=== PATIENT | female | born 1995 | race Caucasian/White ===

== ENCOUNTER → 2019-08-18 | Outpatient (CLI) | payer BC, SELFPAY ==
[2019-08-18 15:35] VITALS: BMI 24.9
[2019-08-18 17:45] LABS: Amphetamine Urine VISTA NEGATIVE (<1000 ng/mL); Barbiturate Urine VISTA NEGATIVE (< 200 ng/mL); Benzodiazepine Urine VISTA NEGATIVE (< 200 ng/mL); Cocaine Urine VISTA NEGATIVE (< 300 ng/mL); Ecstacy Urine VISTA NEGATIVE (< 500 ng/mL); Methadone Urine VISTA NEGATIVE (< 300 ng/mL); PCP Urine VISTA NEGATIVE (< 25 ng/mL); THC Urine VISTA NEGATIVE (< 50 ng/mL); Vista UDS pH Range 6
[2019-08-18 19:56] LABS: Chlamydia Trachomatis by PCR Negative (Negative); Neisserai gonorrhoeae by PCR Negative (Negative); Probe Check PASS; Sample Adequacy Control PASS; Specimen Processing Control PASS
[2019-08-24 09:40] LABS: HPV Reflexed? NOT INDICATED
== END | disposition home or self-care (01) ==
LOC: LABSPEC 16:54
PROVIDERS: PCP Nurse Practitioner Family; Referring Provider Obstetrics & Gynecology; Visit Provider Obstetrics & Gynecology
DX: Z34.90 Encounter for supervision of normal pregnancy, unspecified, unspecified trimester (principal)
CPT/HCPCS: 80307; 87086; 87088; 87491; 87591; 88175; G0145

== ENCOUNTER → 2019-08-19 11:20 | Outpatient (CLI) | payer BC, SELFPAY ==
[2019-08-18 15:35] VITALS: BMI 24.9
[2019-08-19 11:34] LABS: Absolute Lymphocyte Count 2.07 X10^3/uL (0.83-4.51); Absolute Neutrophil Count 3.7 X10^3/uL (2.0-7.7); Basophil# 0.05 X10^3/uL; Basophil% 0.7 % (0-1); Eosinophil# 0.06 X10^3/uL; Eosinophils% 0.9 % (0-5); Hemoglobin 12.7 g/dL (12.0-15.0); Lymphocyte # 2.07 X10^3/ul (4.0); Mean Corp Hgb Conc 31.8 g/dL (32-36); Mean Corpuscular Volume 94.3 fL (81-99); Mean Platelet Vol. 12.5 fl (6.2-12.0); Monocyte# 0.79 X10^3/uL; Monocyte% 11.8 % (0-10); NRBC Flagged by Analyzer 0 % (0-5); Neutrophil # 3.68 X10^3/uL (2.7-7.7); Neutrophil % 55.3 % (47-70); Platelet Count 164 K/mm3 (150-450); RBC Distribution Width CV 12.8 % (11.6-14.6); RBC Distribution Width SD 43.8 fl (35.1-43.9); Red Blood Count 4.24 M/mm3 (4.2-5.4); White Blood Count 6.7 K/mm3 (4.4-11.0)
[2019-08-19 13:16] LABS: HIV - WCH Non-Reactive (Nonreactive); Hepatitis B Surface Antigen Non-Reactive (Nonreactive); Hepatitis C Antibody Non-Reactive (Nonreactive); Rubella IgG 30.2 IU/mL
[2019-08-25 04:31] LABS: Rapid Plasmin Reagin (RPR) NONREACTIVE (NONREACTIVE)
== END ==
PROVIDERS: PCP Nurse Practitioner Family; Referring Provider Obstetrics & Gynecology; Visit Provider Obstetrics & Gynecology
DX: Z34.90 Encounter for supervision of normal pregnancy, unspecified, unspecified trimester (principal)
CPT/HCPCS: 36415; 85025; 86592; 86703; 86762; 86803; 86850; 86900; 86901; 87340

== ENCOUNTER → 2019-08-25 08:05 | Outpatient (CLI) | payer BC, SELFPAY ==
[2019-08-18 15:35] VITALS: BMI 24.9
--- NOTE | 2019-08-25 08:06 | US_ITS ---
STUDY: FIRST TRIMESTER OBSTETRICAL ULTRASOUND REASON FOR EXAM: Female, 24 years old dating LMP: June 09, 2019. TECHNIQUE: Transvaginal TECHNICAL QUALITY: Adequate. PRIOR ULTRASOUND: None. FINDINGS: There is visualization of a single gestational sac in a normal intrauterine position. The mean sac diameter (MSD) measures 2.6 cm, indicating an estimated gestational age (EGA) of 7 weeks, 4 days. The gestational sac shape is within normal limits. There is a visualized yolk sac. The yolk sac measures 2 mm. The placenta is non-visualized. There is visualization of a live embryo. The crown-rump length (CRL) measures 1.3 cm, indicating an estimated gestational age (EGA) of 7 weeks, 4 days. There is demonstrated cardiac activity with a heart rate of 152 bpm. The estimated gestation age (EGA) by LMP is 11 weeks, 0 days. The estimated date of delivery (BELTRAN) by LMP is March 15, 2020. The estimated gestation age (EGA) by US is 7 weeks, 4 days. The estimated date of delivery (BELTRAN) by US is April 08, 2020. The uterus measures 9.9 cm x 8.1 cm x 5.3 cm. There is no demonstrated uterine fibroid. The cervix is closed. The right ovary measures 3.7 cm x 2.7 cm x 2.6 cm. There is no right ovarian cyst. There is no visualized right adnexal mass or complex lesion. The left ovary measures 3 cm x 2.1 cm x 1.6 cm. There is no left ovarian cyst. There is no visualized left adnexal mass or complex lesion. There is no fluid in the cul de sac. US/Transvaginal w/Preg US IMPRESSION: Single live intrauterine gestation with a mean gestational age of 7 weeks and 4 days Electronically Signed: Leoncio Medeiros, at 9:37 EDT , Service support ,
== END ==
PROVIDERS: PCP Nurse Practitioner Family; Referring Provider Obstetrics & Gynecology; Visit Provider Obstetrics & Gynecology
DX: O26.841 Uterine size-date discrepancy, first trimester (principal); Z3A.01 Less than 8 weeks gestation of pregnancy
CPT/HCPCS: 76817

== ENCOUNTER → 2020-01-05 12:27 | Outpatient (CLI) | payer BC, SELFPAY ==
[2019-12-06 13:09] VITALS: BMI 27.1
[2020-01-05 12:57] LABS: Absolute Lymphocyte Count 1.78 X10^3/uL (0.83-4.51); Absolute Neutrophil Count 7.9 X10^3/uL (2.0-7.7); Basophil# 0.06 X10^3/uL; Basophil% 0.6 % (0-1); Eosinophils% 0.9 % (0-5); Hematocrit 35.3 % (37-47); Hemoglobin 11.5 g/dL (12.0-15.0); Lymphocyte # 1.78 X10^3/ul (4.0); Lymphocyte % 16.3 % (19-41); Mean Corp Hgb Conc 32.6 g/dL (32-36); Mean Corpuscular Hgb 30.7 pg (27.0-32.0); Mean Corpuscular Volume 94.4 fL (81-99); Mean Platelet Vol. 12.3 fl (6.2-12.0); Monocyte% 8.3 % (0-10); NRBC Flagged by Analyzer 0 % (0-5); Neutrophil # 7.89 X10^3/uL (2.7-7.7); Neutrophil % 72.3 % (47-70); Platelet Count 178 K/mm3 (150-450); RBC Distribution Width CV 12.2 % (11.6-14.6); RBC Distribution Width SD 42.5 fl (35.1-43.9); Red Blood Count 3.74 M/mm3 (4.2-5.4); White Blood Count 10.9 K/mm3 (4.4-11.0)
[2020-01-05 13:35] LABS: Glucose Challenge Gest 1H 50g 123 mg/dL (70-140)
== END ==
PROVIDERS: PCP Nurse Practitioner Family; Referring Provider Obstetrics & Gynecology; Visit Provider Obstetrics & Gynecology
DX: Z13.1 Encounter for screening for diabetes mellitus (principal); Z34.90 Encounter for supervision of normal pregnancy, unspecified, unspecified trimester
CPT/HCPCS: 36415; 82950; 85025

== ENCOUNTER → 2020-03-15 13:11 | Outpatient (CLI) | payer BC, SELFPAY ==
[2020-03-15 09:15] VITALS: BMI 29.7
== END ==
PROVIDERS: PCP Nurse Practitioner Family; Visit Provider Obstetrics & Gynecology
DX: Z34.90 Encounter for supervision of normal pregnancy, unspecified, unspecified trimester (principal)
CPT/HCPCS: 87081

== ENCOUNTER → 2020-04-06 14:15 | Outpatient (CLI) | payer BC, SELFPAY ==
[2020-03-01 08:59] VITALS: BMI 29.6
[2020-04-05 11:07] VITALS: BMI 29.9
--- NOTE | 2020-04-06 14:17 | US_ITS ---
STUDY: SECOND AND THIRD TRIMESTER OBSTETRICAL ULTRASOUND REASON FOR EXAM: Female, 25 years old growth LMP: TECHNIQUE: TECHNICAL QUALITY: Adequate. PRIOR ULTRASOUND: None. FINDINGS: There is a single intrauterine fetus. The fetus is in a cephalic presentation. There is demonstrated cardiac activity with a heart rate of 126 bpm. There is a normal amniotic fluid volume. The largest amniotic fluid pocket measures 2.75 cm. The amniotic fluid index (IBETH) is 7.9 cm. The placenta is anterior. There are Grade 3 placental changes. There is nonvisualization of the cervix secondary to posterior shadowing from the calvarium. BIOMETRY: BPD: 9.42 cm: 38 weeks, 2 days HC: 34.18 cm: 39 weeks, 2 days AC: 33.67 cm: 37 weeks, 4 days FL: 7.71 cm: 39 weeks, 2 days CI: 81.07 FL/BPD: 82% FL/HC: 22.56 % FL/AC: 23% HC/AC: age by current US: 38 weeks, 4 days. BELTRAN by current US: 04/16/2020. Estimated weight: 3469 grams, +/- 520 grams, 41.82 %. Age by LMP: 39 weeks, 5 days. BELTRAN by LMP: 04/08/2020. US/OB Limited With Biometrics IMPRESSION: Single intrauterine with an estimated gestational age by ultrasound of 38 weeks and 4 days and an BELTRAN of 04/16/2020. Electronically Signed: Ju Leyva MD at 21:31 EST Tel , Service support ,
== END ==
LOC: MTDU 14:17 → OPUS 14:21
PROVIDERS: PCP Nurse Practitioner Family; Referring Provider Nurse Practitioner Women's Health; Visit Provider Nurse Practitioner Women's Health
DX: O26.843 Uterine size-date discrepancy, third trimester (principal); Z3A.38 38 weeks gestation of pregnancy
CPT/HCPCS: 76816; 87635; C9803; U0005; U0003

== ENCOUNTER 2020-04-10 16:25 | Outpatient (CLI) | payer BC, SELFPAY ==
[2020-04-05 11:07] VITALS: BMI 29.9
[2020-04-10 16:47] VITALS: BMI 30.2
[2020-04-10 17:12] VITALS: O2SAT 87
[2020-04-10 17:13] VITALS: BP 107/60; PULSE 91; TEMP 37; O2SAT 98
[2020-04-10 17:32] LABS: ROM Internal Control Test YES-OK TO RESULT pt. (Internal QC)
[2020-04-10 17:33] LABS: ROM Patient Test Negative (Negative)
--- NOTE | 2020-04-10 17:44 | OB.TRI.PN ---
Progress Notes Date of Service: 04/10/20 Progress Note: Patient presents for triage evaluation secondary to false labor possible rupture of membranes FHT: 130 Moderate variability reactive no decelerations category I tracing [place]: No regular contractions Assessment and plan: False labor intact amniotic membranes reactive NST, reassuring maternal and status patient discharged to home to follow-up as scheduled in office reviewed labor precautions. See problem list details for additional plan information. Laboratory Studies: Laboratory Tests 04/10/20 Range/Units 16:42 Vag Amniotic Fld Detect Negative (Negative) Multi Select Codes - Urinary/Genital Urinary/Genital CPT Codes: 14743-09 non-stress test Interp
== END 2020-04-10 18:15 | disposition home or self-care (01) ==
LOC: OBT 16:42 → WP 16:43
PROVIDERS: PCP Nurse Practitioner Family; Referring Provider Obstetrics & Gynecology; Visit Provider Obstetrics & Gynecology
DX: O47.9 False labor, unspecified (principal); Z3A.00 Weeks of gestation of pregnancy not specified
CPT/HCPCS: 59025; 59050; 84112; 99218; G0378

== ENCOUNTER 2020-04-11 00:25 | Inpatient (IN) | payer BC, SELFPAY ==
[2020-04-10 16:47] VITALS: BMI 30.2
[2020-04-11] VITALS (47 sets, daily range): BP systolic 87–137; BP diastolic 51–75; PULSE 65–115; RESP 16; TEMP 36.2–37.3; O2SAT 95–100; BMI 30.2
[2020-04-11] MEDS: Lactated Ringers 1,000 ML 50 ML IV (00:45)
[2020-04-11 01:04] LABS: Absolute Lymphocyte Count 2.02 X10^3/uL (0.83-4.51); Absolute Neutrophil Count 7.6 X10^3/uL (2.0-7.7); Basophil# 0.06 X10^3/uL; Basophil% 0.6 % (0-1); Eosinophil# 0.04 X10^3/uL; Eosinophils% 0.4 % (0-5); Hematocrit 34.8 % (37-47); Hemoglobin 11.2 g/dL (12.0-15.0); Lymphocyte # 2.02 X10^3/ul (4.0); Lymphocyte % 18.6 % (19-41); Mean Corp Hgb Conc 32.2 g/dL (32-36); Mean Corpuscular Hgb 28.8 pg (27.0-32.0); Mean Corpuscular Volume 89.5 fL (81-99); Mean Platelet Vol. 13.1 fl (6.2-12.0); Monocyte# 1.01 X10^3/uL; Monocyte% 9.3 % (0-10); NRBC Flagged by Analyzer 0 % (0-5); Neutrophil # 7.64 X10^3/uL (2.7-7.7); Neutrophil % 70.5 % (47-70); Platelet Count 172 K/mm3 (150-450); RBC Distribution Width SD 42.4 fl (35.1-43.9); Red Blood Count 3.89 M/mm3 (4.2-5.4); White Blood Count 10.8 K/mm3 (4.4-11.0)
[2020-04-11] MEDS: Acetaminophen 500 MG Tablet PO (01:38)
[2020-04-11] MEDS: Lactated Ringers 500 ML 999 ML IV (02:50)
[2020-04-11] MEDS: fentaNYL-bupivacaine (epidural) 100 ML BAG EPIDURAL ×3 (04:00→14:04)
--- NOTE | 2020-04-11 05:07 | HP.PCM_ITS ---
- Problem List (1) SROM (spontaneous rupture of membranes) Status: Acute (2) 35 weeks gestation of Status: Acute Comment: NEGATIVE COVID TEST (3) Influenza vaccine administered Status: Acute Comment: 11/10/2019sc (4) Status: Acute Qualifiers: Comment: declined genetic, carrier and NTD, anatomy US nl (5) Supervision of normal Status: Acute Qualifiers: Comment: PRR BELTRAN 04/08/20 girl Lili Spouse: Asael (6) Uterine size-date discrepancy in third trimester Status: Acute Comment: growth US NL History and Physical Date of Admission: 04/11/20 Intake Vital Signs 04/05/20 Height 5 ft 4 in 04/05/20 Weight: 174 lb 4 oz 04/05/20 BMI 29.9 04/05/20 BP 122/76 H Intake Visit Reasons: 39 WK OB [employer] Required: No Is patient in pain?: No Allergies cefprozil [From Cefzil] Allergy (Unknown, Verified 04/05/20 11:08) Unknown sulfamethoxazole [From Septra] Allergy (Unknown, Verified 04/05/20 11:08) Unknown trimethoprim [From Septra] Allergy (Unknown, Verified 04/05/20 11:08) Unknown Medications multivitamin no.47-iron fum 27 mg-folate no.1 1 mg-dha 300 mg capsule cap PO 08/18/19 [History Confirmed 04/05/20] Last Menstral Period: 06/09/19 Zika: Zika virus screening: Negative : No PFSH PFSH Medical History No significant medical problems (Acute) Surgical History No significant past surgical history (Acute) Family History Grandmother Breast cancer Uncle Colon cancer Social History (Updated 04/05/20 @ 11:[address] Chio Carrizales MD) adopted: No household members: spouse housing: house current occupational status: employed current occupation: MA pets and animals: No history of recent travel: No sexually active: Yes Smoking Status: Never smoker second hand exposure: No alcohol intake: current alcohol intake frequency: holidays/special occasions only substance use type: does not use seatbelt use: always do you feel safe at home: Yes additional social history: Asael- [place]- [place] Pregancy History 1 Elective abortions Hx Para Spontaneous abortions Hx # Term Pregnancies Ectopic pregnancies Hx # Pregnancies Multiple births # of living children HPI 39 WK OB: Details: LETICIA BORDEN is a 25 year old at 40 weeks 3 days presents in active labor with spontaneous rupture membranes meconium fluid. She has been having irregular contractions since yesterday afternoon and is 2 cm upon admission. She has had an uncomplicated . OB Visit BELTRAN Calculator Estimated Delivery Date Method Current WG Current Estimate 04/08/20 Ultrasound #1 39w 4d Other Estimates 03/15/20 LMP (Certain) 43w 0d Expected Delivery Route/Plan by 41 weeks Labor Preferences- CB/BF classes: done january labor support person: Noel labor intervention preferences: minimal intervention pain management options preferred: minimal interventionbut to open cut cord/dad catch: no : yes PP control planned: [] discussed possible routes of delivery and associated risks: discussed possible delivery modalities and possible indications for each including R/B/A of , VAVD, and CS. questions answered. special requests: [] Specific Issue/Plans flu vaccine: 11/09 tdap vaccine: given 02/01 rhogam: na LARC form signed: yes movement and labor precautions reviewed. Problem list reviewed and updated with the most current plan of care details and appropriate orders placed. Relevant counseling for the gestational age provided. Continue routine care and follow up unless otherwise noted in visit notes/problem list details Initial Weight: 145 lb Date EGA Weight BP Urine Prot Glucose FHR FuHt Pres Dilation Effaced St Visit Note 09/15/19 10w 4d 146 lb (+16 oz) 116/62 Negative Negative 165 SM- no vb cramping reviewed dating us 10/11/19 14w 2d 149 lb 4 oz (+4 lb 4 oz) 118/68 Negative Negative 148 MH-NO VB, LOF. MFM anatomy us ordered. 11/10/19 18w 4d 151 lb (+6 lb) 110/64 Negative Negative 145 SM- no vb cramping 12/06/19 22w 2d 158 lb (+13 lb) 134/70 Negative Negative 140 22 SM- no vb lof good fm no regular ctx fu scan with [facility] scheudled. 01/05/20 26w 4d 162 lb 8 oz (+17 lb 8 oz) 122/74 Negative Negative 154 27 MH-No VB, LOF. Good FM. 28 wk labs today. 02/02/20 30w 4d 168 lb (+23 lb) 124/72 Negative Negative 145 30 SM- no vb lof good fm no regular ctx tdap 02/14/20 32w 2d 170 lb (+25 lb) 112/80 Negative Negative 140 32 SM- no vb lof cramping doing well 03/01/20 34w 4d 172 lb 8 oz (+27 lb 8 oz) 114/70 Negative Negative 150 34 GP - no LOF, VB, DFM, ctx. Denies complaints. 03/15/20 36w 4d 173 lb (+28 lb) 124/82 Negative Negative 145 35 Cephalic 0 SM- no vb lof good fm no regular ctx gbs done 03/22/20 37w 4d 177 lb 8 oz (+32 lb 8 oz) 120/70 Negative Negative 150 37 Cephalic GP - no LOF, VB, DFM, ctx. GP - no LOF, VB, DFM, ctx. GBS negative. 03/29/20 38w 4d 176 lb (+31 lb) 112/62 Negative Negative 125 37 Cephalic SM- no vb lof good fm no regular ctx 04/05/20 39w 4d 174 lb 4 oz (+29 lb 4 oz) 122/76 Negative Negative 130 37 Cephalic 0.5 -1 SM- no vb lof good fm no regular ctx ROS Const Reports system reviewed and no additional complaints, except as documented Card Reports system reviewed and no additional complaints, except as documented Resp Reports system reviewed and no additional complaints, except as documented GI Reports system reviewed and no additional complaints, except as documented, Reports nausea Reports system reviewed and no additional complaints, except as documented Musc Reports system reviewed and no additional complaints, except as documented all other systems reviewed and negative Exam Const General: cooperative, healthy appearing, comfortable [facility] Head: normal to inspection Nose: external nose normal Face and sinus: normal facial exam Neck Neck: normal visual inspection, full ROM, no lymphadenopathy Thyroid: thyroid normal Chest Chest palpation & inspection: normal inspection of the chest Resp Effort & Inspection: normal respiratory effort GI Inspection: normal to inspection Palpation: soft, other (gravid uterus) Other: vertex and appropriate size for gestational age Other: Cervical Exam: 3 cm Extrem General: pedal edema ACOG First Trimester First Trimester: Desire for , Alcohol, Tobacco Cessation, Illicit/Recreational Drug/Substance Use, Intimate Partner Violence, Barriers to care, Unstable Housing, Communication Barriers, Environmental/Work Hazards, Anticipated Course of Care, Toxoplasmosis Precations, Use of Any medications, Sexual activity, Exercise, Dental Care, Sauna/Hot tub use, Seat Belt use, Childbirth classes/Hospital facilities, , Travel, Indications for US and Screening for Aneuploidy Second Trimester Second Trimester: Signs and Symptoms of Labor, Selecting a care provider, Reproductive Life Planning, Care Planning, Depression/Anxiety and Intimate Partner Violence; discussed Tobacco Cessation Diagnostics Diagnostics Diagnostics Glucose 1 Hr 50 gm 123 mg/dL (70-140) 01/05/20 Hgb 11.5 g/dL (12.0-15.0) L 01/05/20 Hct 35.3 % (37-47) L 01/05/20 Details: HIV: Urine Culture: Sequential Screen: NIPT Screen: Results POC Urinalysis 2 Dip (Clinic) Office Urine Glucose Negative Last Edit by Alyse Lynn on 04/05/20 11:16 Office Urine Protein Negative Last Edit by Alyse Lynn on 04/05/20 11:16 Assessment & Plan Problems 1. 35 weeks gestation of Z3A.35 electronic covid test ordered 03/09/20 (scheduled for 04/06/20 3:30pm) 2. Influenza vaccine administered Z23 11/10/2019sc 3. 39 weeks gestation of Z3A.39 declined genetic, carrier and NTD, anatomy US nl 4. Supervision of normal Z34.90 PRR BELTRAN 04/08/20 girl Lili Spouse: Asael 5. Uterine size-date discrepancy in third trimester O26.843 growth US none Patient presents IAL, plan expectant management for , Pitocin as needed. Pain management: [plans epidural]. GBS negative. Management of any complications: [none] I have reviewed the [facility] and made any clinically relevant updates. Orders Orders: POC Urinalysis 2 Dip (Clinic) Today OB Limited With Biometrics Today O26.843 Coding Level of Care Code OB Routine Diagnoses 35 weeks gestation of Z3A.35 Influenza vaccine administered Z23 39 weeks gestation of Z3A.39 ??Weeks of gestation: 39 weeks Supervision of normal Z34.90 Uterine size-date discrepancy in third trimester O26.843 UPDATE- I have seen the patient and performed any clinically relevant updates to the history and physical exam. Chio Carrizales MD
[2020-04-11] MEDS: Lactated Ringers 1,000 ML 200 ML IV ×3 (07:30→17:29)
[2020-04-11] MEDS: Ondansetron 4 MG/2 ML Vial IV (09:29)
[2020-04-11] MEDS: Oxytocin 30 units/NS 500 ml 30 UNITS/500 ML IV.SOLN IV (09:40)
[2020-04-11] MEDS: Oxytocin 30 units/NS 500 ml 30 UNITS/500 ML IV.SOLN 334 UNITS IV (18:27)
--- NOTE | 2020-04-11 18:41 | PCM.OPRPT ---
Problem List (1) SROM (spontaneous rupture of membranes) Status: Acute (2) Uterine size-date discrepancy in third trimester Status: Acute Comment: growth US NL (3) 35 weeks gestation of Status: Acute Comment: NEGATIVE COVID TEST (4) Influenza vaccine administered Status: Acute Comment: 11/10/2019sc (5) Status: Acute Qualifiers: Comment: declined genetic, carrier and NTD, anatomy US nl (6) Supervision of normal Status: Acute Qualifiers: Comment: PRR BELTRAN 04/08/20 girl Lili Spouse: Asael Vaginal Delivery Maternal Presentation: Active Labor 25-year-old G1, P0 Amniotic Membrane Rupture Type: Spontaneous at home Amniotic Fluid Description: Clear Final BELTRAN: 04/08/20 Gestational age: 40 Weeks and 3 Days Date of Procedure: 04/11/20 Pre-Operative Diagnosis: Term , active labor Post-Operative Diagnosis: Same Surgery/ Procedure Performed: Spontaneous Vaginal Delivery Type of Anesthesia: Epidural Description of Procedure: Patient began pushing and delivered the head in the IRENA presentation. The head was delivered atraumatically and no nuchal cord was noted. The anterior and posterior shoulders delivered without complication followed by the rest of the and the infant was placed on the maternal abdomen. Delayed cord clamping was employed for approximately 60 seconds. Cord was clamped and cut and gentle traction was applied to the cord and the placenta delivered spontaneously immediately following it was noted to be intact with three-vessel cord. The perineum and vagina were inspected and a midline second-degree perineal laceration was noted and repaired in standard fashion using 3-0 Vicryl Rapide suture. EBL was 150 cc. Patient and infant tolerated delivery well. Presentation: Vertex, IRENA Placental Delivery Description: Spontaneous Placenta Disposition: [facility] Cord Vessel Description: 3 Vessels Cord Entanglement: None Drain: Fall to straight drain Estimated Blood Loss: 150 Infant A gender: Female Episiotomy Description: None Laceration: Midline, Perineal Extension/lac, 2nd degree Medications given after delivery: IV Pitocin Complications: None Multi Select Codes - Urinary/Genital Urinary/Genital CPT Codes: 84371 Vaginal Delivery [facility]
--- NOTE | 2020-04-11 18:44 | DCINST_ITS ---
Discharge Diet: No Restrictions Discharge Activity: Return to Normal Activity, May not drive while taking narcotic pain medications., May Shower May resume sexual activity in: 4-6 weeks Additional Activity Instructions:: Nothing in the vagina for 4-6 weeks. You may return to work/school in 6 weeks. Call your doctor if your incision/area has: Continuous Slow Oozing, Sudden Increased Bleeding, Increased Pain/ Swelling, Increased Redness, Foul Smelling Discharge Additional Instructions: If you experience any of the following, contact your healthcare provider. * Bleeding that soaks a pad every hour for 2 hours * Fever 100.4 or higher * Unrelieved incision or abdominal pain * Swelling, redness, discharge or bleeding from your incision or episiotomy site * Your incision begins to separate * Problems urinating (including inability to urinate or burning while urinating). * Visual changes * Severe headache * Flu-like symptoms * Pain or redness in one of both of your breasts * Pain, warmth, tenderness or swelling in your legs, especially the calf area * Frequent nausea and vomiting * Symptoms of depression or anxiety If you experience any of the following, call 911 or go to the nearest Emergency Room. * Chest pain * Problems breathing * Seizure activity * Partial or complete paralysis of a body part, slurred speech, weakness or drooping of the face, or a sudden inability to walk or hold your balance Allergies/Adverse Reactions: Allergies cefprozil [From Cefzil] Allergy (Unknown, Verified 04/10/20 16:49) Rash sulfamethoxazole [From Septra] Allergy (Unknown, Verified 04/10/20 16:49) Rash trimethoprim [From Septra] Allergy (Unknown, Verified 04/10/20 16:49) Rash as a toddler Medications to take at Discharge Pnv No.95/Ferrous Fum/Folic AC [ Formula] 1 ea PO DAILY 04/11/20 When: Call to make an appointment with your doctor in 6 weeks. If you had elevated Blood Pressure or 4th degree laceration you will need to be seen in 2 weeks. Primary Care Physician: Kirsty Parker NP, CASH APPLICATIONS ANALYST-C [Primary Care Provider] - Test Results: Test results from this visit will be discussed in further detail at your follow- up appointment, if applicable.
[2020-04-11] MEDS: 0.9% Saline Lock 10 ML Syringe IV (21:32)
[2020-04-11] MEDS: Acetaminophen 500 MG Tablet 1000 MG PO (22:09)
[2020-04-12] MEDS: Naproxen 250 MG Tablet 500 MG PO (02:29)
[2020-04-12 05:57] VITALS: BP 110/57; PULSE 87; RESP 16; TEMP 36.7
--- NOTE | 2020-04-12 07:55 | PCM.PN.OB ---
Patient Problems: Active and Suspected Problems (Last Reviewed 04/05/20 @ 11:07 by Alyse Lynn) SROM (spontaneous rupture of membranes) (Acute) Uterine size-date discrepancy in third trimester (Acute) growth US NL 35 weeks gestation of (Acute) NEGATIVE COVID TEST Influenza vaccine administered (Acute) 11/10/2019sc (Acute) declined genetic, carrier and NTD, anatomy US nl Supervision of normal (Acute) PRR BELTRAN 04/08/20 girl Lili Spouse: Asael Subjective: Patient doing well without complaints. Tolerating PO. Ambulating and voiding without difficulty. Breast feeding well. Denies chest pain, shortness of breath, calf pain/swelling, fevers, chills, lightheadedness. - Physical Exam Vitals/I&O's: Vital Signs Temp Pulse Resp BP Pulse Ox 98.0 F 87 16 110/57 L 97 04/12/20 05:57 04/12/20 05:57 04/12/20 05:57 04/12/20 05:57 04/11/20 23:50 Oxygen Delivery Method Room Air Weight: 176 lb 5.917 oz Body Mass Index (BMI) 30.2 Intake and Output for Last 24 Hours 04/10/20 04/11/20 04/12/20 23:59 23:59 23:59 Intake Total 4746.01 / 4746.01 Output Total 2950 / 2950 Balance 1796.01 / 1796.01 General: Alert, Oriented x3, Cooperative, No apparent distress, Well developed, Well nourished HEENT: Atraumatic, PERRLA, EOMI, Normocephalic Neck: Supple, No JVD Lungs: Normal air movement Cardiovascular: Regular rate Abdomen: Soft, Non Tender, Non-Distended, - - fundus firm Extremities: No edema, No Calf Tenderness Neurological: Cranial nerves II-XII grossly intact, Neuro grossly intact Psych/Mental Status: Normal Affect, Appropriate Current Medications Acetaminophen (Acetaminophen 500 Mg Tablet) 1,000 mg PO Q8H PRN PRN PRN Reason: Pain Score 1-3 Last Admin: 04/11/20 22:09 Dose: 1,000 mg Documented by: Bisacodyl (Bisacodyl 10 Mg Suppository) 10 mg RECTAL UD PRN PRN Reason: If no BM Dibucaine (Dibucaine 30 Gm Tube) 1 applic TOPICAL TID PRN PRN; Protocol PRN Reason: Discomfort Hydrocortisone (Hydrocortisone 2.5% Crm) 1 applic TOPICAL TID PRN PRN; Protocol PRN Reason: Discomfort Methylergonovine Maleate (Methylergonovine 0.2 Mg/Ml Ampul) 0.2 mg IM X1 PRN PRN Reason: Excess bleeding/uterine atony Naproxen (Naproxen 250 Mg Tablet) 500 mg PO Q8H PRN PRN PRN Reason: Pain Score 1-3 Last Admin: 04/12/20 02:29 Dose: 500 mg Documented by: Ondansetron HCl (Ondansetron 4 Mg/2 Ml Vial) 4 mg IV Q4H PRN PRN PRN Reason: Nausea Oxycodone HCl (Oxycodone 5 Mg Tablet) 5 - 10 mg PO Q4H PRN PRN PRN Reason: Pain Score 4-10 Senna/Docusate Sodium (Senna/Docusate Sodium 1 Tablet) 1 - 2 tablet PO DAILY PRN PRN PRN Reason: Constipation Simethicone (Simethicone 80 Mg Tablet) 80 mg PO PCHS PRN PRN Reason: Indigestion/Stomach pain Sodium Chloride (0.9% Saline Lock 10 Ml Syringe) 5 - 15 ml IV UD PRN PRN Reason: SALINE FLUSH Last Admin: 04/11/20 21:32 Dose: 10 ml Documented by: Medical Necessity - Tobacco Use Smoking Status: Never smoker Assessment/Plan All Active Problems (Last Reviewed 04/05/20 @ 11:07 by Alyse Lynn) SROM (spontaneous rupture of membranes) (Acute) Uterine size-date discrepancy in third trimester (Acute) 35 weeks gestation of (Acute) Influenza vaccine administered (Acute) (Acute) Supervision of normal (Acute) Normal first with uncertain date of LMP, antepartum (Resolved)
[2020-04-12 09:17] VITALS: BP 114/48; PULSE 69; RESP 16; TEMP 36.3
[2020-04-12] MEDS: Acetaminophen 500 MG Tablet 1000 MG PO (09:39)
[2020-04-12 12:00] VITALS: BP 97/48; PULSE 76; RESP 16; TEMP 36.8
[2020-04-12 15:56] VITALS: BP 112/68; PULSE 74; RESP 16; TEMP 36.4
[2020-04-12 20:08] VITALS: BP 111/58; PULSE 75; RESP 18; TEMP 36.6; O2SAT 98
== END 2020-04-12 20:25 | disposition home or self-care (01) | DRG 807 ==
LOC: WPOUT 00:27 → WP 00:27
PROVIDERS: Admitting Provider Obstetrics & Gynecology; PCP Nurse Practitioner Family; Visit Provider Obstetrics & Gynecology
DX: O70.1 Second degree perineal laceration during delivery (principal); Z37.0 Single live birth; Z3A.40 40 weeks gestation of pregnancy
CPT/HCPCS: 59025; 59050; 85025; 86850; 86900; 86901; 99218; J7120; A4216; G0378; J2405

== ENCOUNTER → 2020-09-24 11:18 | Outpatient (CLI) | payer OTHER, SELFPAY ==
[2020-09-24 10:28] VITALS: BMI 27.1
[2020-09-24 11:42] LABS: Absolute Lymphocyte Count 1.98 X10^3/uL (0.83-4.51); Absolute Neutrophil Count 4.2 X10^3/uL (2.0-7.7); Basophil# 0.05 X10^3/uL; Basophil% 0.7 % (0-1); Eosinophil# 0.05 X10^3/uL; Eosinophils% 0.7 % (0-5); Hematocrit 38.8 % (37-47); Hemoglobin 12.7 g/dL (12.0-15.0); Lymphocyte # 1.98 X10^3/ul (0.83-4.51); Lymphocyte % 28.5 % (19-41); Mean Corp Hgb Conc 32.7 g/dL (32-36); Mean Corpuscular Hgb 29.7 pg (27.0-32.0); Mean Corpuscular Volume 90.9 fL (81-99); Mean Platelet Vol. 12.5 fl (6.2-12.0); Monocyte# 0.63 X10^3/uL; Monocyte% 9.1 % (0-10); NRBC Flagged by Analyzer 0 % (0-5); Neutrophil # 4.21 X10^3/uL (2.7-7.7); Neutrophil % 60.7 % (47-70); Platelet Count 166 K/mm3 (150-450); RBC Distribution Width CV 12.7 % (11.6-14.6); RBC Distribution Width SD 41.9 fl (35.1-43.9); Red Blood Count 4.27 M/mm3 (4.2-5.4); White Blood Count 6.9 K/mm3 (4.4-11.0)
[2020-09-24 11:50] LABS: Amphetamine Urine VISTA NEGATIVE (<1000 ng/mL); Barbiturate Urine VISTA NEGATIVE (< 200 ng/mL); Benzodiazepine Urine VISTA NEGATIVE (< 200 ng/mL); Cocaine Urine VISTA NEGATIVE (< 300 ng/mL); Ecstacy Urine VISTA NEGATIVE (< 500 ng/mL); Methadone Urine VISTA NEGATIVE (< 300 ng/mL); PCP Urine VISTA NEGATIVE (< 25 ng/mL); THC Urine VISTA NEGATIVE (< 50 ng/mL); Vista UDS pH Range 6
[2020-09-24 12:46] LABS: HIV - WCH Non-Reactive (Nonreactive); Hepatitis B Surface Antigen Non-Reactive (Nonreactive); Hepatitis C Antibody Non-Reactive (Nonreactive); Rubella IgG Reactive (Nonreactive); Syphilis Antibodies Non-reactive
[2020-09-26 03:07] LABS: Chlamydia By Nucleic Acid AMP Negative (Negative)
[2020-09-26 11:55] LABS: Gonococcus By Nucleic Acid AMP Negative (Negative)
== END ==
PROVIDERS: PCP Nurse Practitioner Family; Referring Provider Obstetrics & Gynecology; Visit Provider Obstetrics & Gynecology
DX: O09.90 Supervision of high risk pregnancy, unspecified, unspecified trimester (principal)
CPT/HCPCS: 36415; 80307; 85025; 86703; 86762; 86780; 86803; 86850; 86900; 86901; 87086; 87088; 87340; 87491; 87591

== ENCOUNTER → 2021-02-11 11:18 | Outpatient (CLI) | payer OTHER, SELFPAY ==
[2021-02-11 11:39] LABS: Absolute Lymphocyte Count 1.76 X10^3/uL (0.83-4.51); Absolute Neutrophil Count 6.2 X10^3/uL (2.0-7.7); Basophil# 0.05 X10^3/uL; Basophil% 0.6 % (0-1); Eosinophil# 0.05 X10^3/uL; Eosinophils% 0.6 % (0-5); Hematocrit 34.5 % (37-47); Hemoglobin 11.1 g/dL (12.0-15.0); Lymphocyte # 1.76 X10^3/ul (0.83-4.51); Lymphocyte % 20.3 % (19-41); Mean Corp Hgb Conc 32.2 g/dL (32-36); Mean Corpuscular Hgb 29.4 pg (27.0-32.0); Mean Corpuscular Volume 91.5 fL (81-99); Mean Platelet Vol. 11.9 fl (6.2-12.0); Monocyte# 0.59 X10^3/uL; Monocyte% 6.8 % (0-10); NRBC Flagged by Analyzer 0 % (0-5); Neutrophil # 6.17 X10^3/uL (2.7-7.7); Neutrophil % 71.1 % (47-70); Platelet Count 199 K/mm3 (150-450); RBC Distribution Width CV 12.6 % (11.6-14.6); RBC Distribution Width SD 42.4 fl (35.1-43.9); Red Blood Count 3.77 M/mm3 (4.2-5.4); White Blood Count 8.7 K/mm3 (4.4-11.0)
[2021-02-11 12:13] LABS: Glucose Challenge Gest 1H 50g 115 mg/dL (70-140)
== END ==
PROVIDERS: PCP Nurse Practitioner Family; Referring Provider Obstetrics & Gynecology; Visit Provider Obstetrics & Gynecology
DX: Z13.1 Encounter for screening for diabetes mellitus (principal)
CPT/HCPCS: 36415; 82950; 85025

== ENCOUNTER 2021-04-01 17:20 | Outpatient (CLI) | payer OTHER, SELFPAY ==
[2021-04-01 17:29] VITALS: BMI 29.5
[2021-04-01 17:33] VITALS: BP 108/60; PULSE 91; TEMP 36.9; O2SAT 98
[2021-04-01 17:34] VITALS: BP 108/60; PULSE 91
--- NOTE | 2021-04-02 01:41 | OB.TRI.PN_ITS ---
Progress Notes Date of Service: 04/02/21 Progress Note: Patient presents for triage evaluation secondary to fall and abdominal trauma FHT: 130 Moderate variability reactive no decelerations category I tracing [place]: no regular Contractions Assessment and plan: prolonged monitoring with no ctx, bleeding, abdominal pain, good fm Reactive NST, reassuring maternal and status patient discharged to home to follow-up as scheduled. See problem list details for additional plan information. Charges/Coding Procedures Urinary/Genital 52xxx-59xxx: 14046-92 non-stress test Interp Assessment & Plan (1) Abdominal trauma: (2) Fall:
== END 2021-04-01 23:59 | disposition home or self-care (01) ==
LOC: WPOUT 17:27 → WP 17:27
PROVIDERS: PCP Nurse Practitioner Family; Visit Provider Obstetrics & Gynecology
DX: O71.9 Obstetric trauma, unspecified (principal); W19.XXXA Unspecified fall, initial encounter; Z3A.00 Weeks of gestation of pregnancy not specified
CPT/HCPCS: 59025; 59050; 99218; G0378

== ENCOUNTER 2021-04-17 16:15 | Outpatient (CLI) | payer OTHER, SELFPAY | END 2021-04-17 23:59 | disposition home or self-care (01) | LOC: LABSPEC 16:18 | PROVIDERS: PCP Nurse Practitioner Family; Visit Provider Obstetrics & Gynecology | DX: O09.90 Supervision of high risk pregnancy, unspecified, unspecified trimester (principal); Z3A.00 Weeks of gestation of pregnancy not specified | CPT/HCPCS: 87081 ==

== ENCOUNTER 2021-05-03 08:43 | Outpatient (CLI) | payer OTHER, SELFPAY ==
--- NOTE | 2021-05-03 08:45 | US_ITS ---
STUDY: SECOND AND THIRD TRIMESTER OBSTETRICAL ULTRASOUND - LIMITED REASON FOR EXAM: Female, 26 years old growth -- IF and gt;10% CALL DR KEN WITH RESULTS LMP: 07/31/2020. PRIOR ULTRASOUND: Comparison is made with prior examination dated 04/06/2020. TECHNIQUE: Transabdominal TECHNICAL QUALITY: Adequate. FINDINGS: There is a single intrauterine fetus. The fetus is in a cephalic presentation. There is demonstrated cardiac activity with a heart rate of 150 bpm. There is a normal amniotic fluid volume. The largest amniotic fluid pocket measures 4.3 cm. The amniotic fluid index (IBETH) is 9.0 cm. The placenta is anterior in location and is not low lying. There are Grade 3 placental changes. BIOMETRY: BPD: 9.5 cm: 38 weeks, 6 days HC: 34.7 cm: 40 weeks, 2 days AC: 35.1 cm: 39 weeks, 0 days FL: 7.6 on: 39 weeks, 0 days Age by LMP: 39 weeks, 3 days. BELTRAN by LMP: 05/07/2021. age by current US: 39 weeks, 2 days. BELTRAN by current US: . Estimated weight: 3675 grams, +/- 537 grams, 64 percentile. US/OB Limited With Biometrics IMPRESSION: Single live uterine gestation with a mean gestational age of 39 weeks and 2 days. Electronically Signed: Leoncio Medeiros MD at 13:00 EST ,
== END 2021-05-03 23:59 | disposition home or self-care (01) ==
LOC: US 08:45
PROVIDERS: PCP Nurse Practitioner Family; Referring Provider Obstetrics & Gynecology; Visit Provider Obstetrics & Gynecology
DX: O26.849 Uterine size-date discrepancy, unspecified trimester (principal); Z3A.00 Weeks of gestation of pregnancy not specified
CPT/HCPCS: 76816

== ENCOUNTER 2021-05-09 08:50 | Inpatient (IN) | payer OTHER, SELFPAY ==
[2021-05-09] VITALS (37 sets, daily range): BP systolic 91–118; BP diastolic 53–79; PULSE 57–95; RESP 16–18; TEMP 35.9–37.1; O2SAT 94–100; BMI 29.8
[2021-05-09] MEDS: Lactated Ringers 500 ML 999 ML IV (09:10)
[2021-05-09 09:27] LABS: Absolute Lymphocyte Count 1.79 X10^3/uL (0.83-4.51); Absolute Neutrophil Count 6.3 X10^3/uL (2.0-7.7); Basophil# 0.07 X10^3/uL; Basophil% 0.8 % (0-1); Eosinophil# 0.03 X10^3/uL; Eosinophils% 0.3 % (0-5); Hematocrit 35.9 % (37-47); Hemoglobin 11.7 g/dL (12.0-15.0); Lymphocyte # 1.79 X10^3/ul (0.83-4.51); Lymphocyte % 20.3 % (19-41); Mean Corp Hgb Conc 32.6 g/dL (32-36); Mean Corpuscular Hgb 28.2 pg (27.0-32.0); Mean Corpuscular Volume 86.5 fL (81-99); Mean Platelet Vol. 12.5 fl (6.2-12.0); Monocyte% 6.8 % (0-10); NRBC Flagged by Analyzer 0 % (0-5); Neutrophil # 6.28 X10^3/uL (2.7-7.7); Neutrophil % 71.3 % (47-70); Platelet Count 170 K/mm3 (150-450); RBC Distribution Width CV 13.3 % (11.6-14.6); RBC Distribution Width SD 41.5 fl (35.1-43.9); Red Blood Count 4.15 M/mm3 (4.2-5.4); White Blood Count 8.8 K/mm3 (4.4-11.0)
[2021-05-09] MEDS: Lactated Ringers 1,000 ML 200 ML IV (09:41)
[2021-05-09] MEDS: fentaNYL-bupivacaine (epidural) 100 ML BAG EPIDURAL (09:45)
[2021-05-09] MEDS: Oxytocin 30 units/NS 500 ml 30 UNITS/500 ML IV.SOLN 334 UNITS IV (12:54)
--- NOTE | 2021-05-09 13:06 | HP.PCM.OB_ITS ---
HPI - General General Date of Admission: 05/09/21 HPI Narrative LETICIA BORDEN, is a 26 y/o F @ 40 weeks 2 days who presents to L&D with painful contractions. she changed her cervix from 3 cm to 5 cm over 2 hrs and was admitted to L&D Maternal Data Information BELTRAN Calculator Estimated Delivery Date Method Current WG Current Estimate 05/07/21 LMP (Certain) 40w 2d PFSH PFS Medical History (Updated 05/08/21 @ 09:22 by Alyse Lynn) No significant medical problems Home Medications prenat.vits,flora,[id number] 1 tab PO DAILY 09/17/20 [History Last Taken 05/08/21 17:00] Allergy/AdvReac Type Severity Reaction Status Date / Time cefprozil [From Cefzil] Allergy Unknown Rash Verified 05/09/21 07:39 sulfamethoxazole Allergy Unknown Rash Verified 05/09/21 07:39 [From Septra] trimethoprim [From Septra] Allergy Unknown Rash Verified 05/09/21 07:39 Family History Grandmother Breast cancer Uncle Colon cancer Surgical History No significant past surgical history Social History adopted: No household members: spouse and children housing: house number of children: 1 current occupational status: employed and unemployed current occupation: [employer] pets and animals: No history of recent travel: No sexually active: Yes Smoking Status: Never smoker second hand exposure: No alcohol intake: current alcohol intake frequency: holidays/special occasions only details: not while substance use type: does not use seatbelt use: always do you feel safe at home: Yes additional social history: Asael- [place] History 2 Elective abortions Hx Para 1 Spontaneous abortions Hx # Term Pregnancies 1 Ectopic pregnancies Hx # Pregnancies Multiple births # of living children 1 Past Pregnancies Del. Date Name GA/Weeks Outcome Route Bth Weight Infant Gen Labor Lgth Anesthesia Del Locatn Provider FOB 04/11/20 Lili 40 live - full term 7lbs 5oz Female e pidural [facility] Iam Delivery Date: 04/11/20 admitted in active labor Radha Loza Visit Details Expected Delivery Route/Plan Labor Preferences- CB/BF classes: no labor support person: Asael labor intervention preferences: [] pain management options preferred: epidural cut cord/dad catch: no : no PP control planned: discussed discussed possible routes of delivery and associated risks: [] special requests: [] Plans Covid status: had symptoms, wasn't tested. counseled regarding risk of covid in vs vaccination and declined vaccination Flu vaccine: declined Tdap vaccine: given Rhogam: na LARC form signed: yes Problem list reviewed and updated with the most current plan of care details and appropriate orders placed. Relevant counseling for the gestational age provided. Continue routine care and follow up unless otherwise noted in visit notes/problem list details OB Flowsheet Initial Weight: 150 lb Date -?-?-?-?-?-?-?-?-?-?-?-?- EGA Weight BP Urine Prot -?-?-?-?-?-?-?-?-?-?-?-?- Glucose FHR FuHt Pres Dilation -?-?-?-?-?-?-?-?-?-?-?-?- Effaced St Visit Note 09/24/20 -?-?-?-?-?-?-?-?-?-?-?-?- 7w 6d 152 lb 8 oz (+2 lb 8 oz) 112/80 -?-?-?-?-?-?-?-?-?-?-?-?- 157 -?-?-?-?-?-?-?-?-?-?-?-?- GP - CRL 13mm co nsistent with LMP. 10/22/20 -?-?-?-?-?-?-?-?-?-?-?-?- 11w 6d 152 lb 2 oz (+2 lb 2 oz) 128/76 Negative -?-?-?-?-?-?-?-?-?-?-?-?- Negative 160 -?-?-?-?-?-?-?-?-?-?-?-?- GP - no cramping or bleeding. Anatomy scan ordered. 11/19/20 -?-?-?-?-?-?-?-?-?-?-?-?- 15w 6d 155 lb (+5 lb) 108/62 Negative -?-?-?-?-?-?-?-?-?-?-?-?- Negative 150 -?-?-?-?-?-?-?-?-?-?-?-?- SM- no vb crampi ng 12/17/20 -?-?-?-?-?-?-?-?-?-?-?-?- 19w 6d 161 lb (+11 lb) 116/70 Negative -?-?-?-?-?-?-?-?-?-?-?-?- Negative 156 -?-?-?-?-?-?-?-?-?-?-?-?- MH-No Vb, LOF. G ood FM. Will call when anatomy US resulted(done with [facility] 12/10) 01/14/21 -?-?-?-?-?-?-?-?-?-?-?-?- 23w 6d 169 lb (+19 lb) 104/80 Negative -?-?-?-?-?-?-?-?-?-?-?-?- Negative 150 -?-?-?-?-?-?-?-?-?-?-?-?- SM- no vb lof go od fm nor egular ctx 02/11/21 -?-?-?-?-?-?-?-?-?-?-?-?- 27w 6d 170 lb (+20 lb) 112/64 -?-?-?-?-?-?-?-?-?-?-?-?- 140 28 -?-?-?-?-?-?-?-?-?-?-?-?- SM- no vb lof go od fm nro eglar ctx cbc gct 02/25/21 -?-?-?-?-?-?-?-?-?-?-?-?- 29w 6d 171 lb 6 oz (+21 lb 6 oz) 120/62 Negative -?-?-?-?-?-?-?-?-?-?-?-?- Negative 152 29 -?-?-?-?-?-?-?-?-?-?-?-?- -No VB, LOF. G ood FM. No CTX. Larc. 03/15/21 -?-?-?-?-?-?-?-?-?-?-?-?- 32w 3d 171 lb 4 oz (+21 lb 4 oz) 100/66 Negative -?-?-?-?-?-?-?-?-?-?-?-?- Negative 135 32 -?-?-?-?-?-?-?-?-?-?-?-?- - no vb lof go od fm no regular ctx. 03/25/21 -?-?-?-?-?-?-?-?-?-?-?-?- 33w 6d 172 lb 4 oz (+22 lb 4 oz) 110/64 Negative -?-?-?-?-?-?-?-?-?-?-?-?- Negative 161 33 -?-?-?-?-?-?-?-?-?-?-?-?- -No VB, LOF. N o CTX 04/08/21 -?-?-?-?-?-?-?-?-?-?-?-?- 35w 6d 173 lb 6 oz (+23 lb 6 oz) 126/72 Trace -?-?-?-?-?-?-?-?-?-?-?-?- Negative 142 36 Cephalic -?-?-?-?-?-?-?-?-?-?-?-?- -No Vb, LOF. G ood Fm. Denies concerns. 04/17/21 -?-?-?-?-?-?-?-?-?-?-?-?- 37w 1d 174 lb 4 oz (+24 lb 4 oz) 120/60 Negative -?-?-?-?-?-?-?-?-?-?-?-?- Negative 131 35 Cephalic -?-?-?-?-?-?-?-?-?-?-?-?- JV- pt declines pelvic exam. No lof, vaginal bleeding, or dec fm. GBS collected. 04/25/21 -?-?-?-?-?-?-?-?-?-?-?-?- 38w 2d 176 lb (+26 lb) 120/86 -?-?-?-?-?-?-?-?-?-?-?-?- 135 37 Cephalic -?-?-?-?-?-?-?-?-?-?-?-?- SM- no vb lof go od fm no regular ctx 05/02/21 -?-?-?-?-?-?-?-?-?-?-?-?- 39w 2d 172 lb 4 oz (+22 lb 4 oz) 118/80 Negative -?-?-?-?-?-?-?-?-?-?-?-?- Negative 135 35 Cephalic 3 -?-?-?-?-?-?-?-?-?-?-?-?- 60 -2 Sm- no vb lof good fm no regular ctx low FH check aleena now 05/08/21 -?-?-?-?-?-?-?-?-?-?-?-?- 40w 1d 173 lb 8 oz (+23 lb 8 oz) 124/86 Negative -?-?-?-?-?-?-?-?-?-?-?-?- Negative 137 36 Transverse 3 -?-?-?-?-?-?-?-?-?-?-?-?- 80 -2 JV- growth and fluid check last week were normal. plan for IOL at 41 weeks if no labor. 05/09/21 -?-?-?-?-?-?-?-?-?-?-?-?- 40w 2d 174 lb (+24 lb) 111/79 113/71 118/76 111/68 100/63 107/67 110/67 109/60 103/63 116/74 104/58 103/57 112/69 105/67 91/53 -?-?-?-?-?-?-?-?-?-?-?-?- -?-?-?-?-?-?-?-?-?-?-?-?- ROS Constitutional Constitutional: Denies change in weight, fatigue, fever(s), headache(s), poor appetite or weakness Eyes Eyes: Denies blurry vision, change in vision, seeing flashes or spots in vision ENT HEENT: Denies dizziness, headache(s), loss taste/smell or sore throat Cardiovascular Cardiovascular: Denies chest pain, dizziness, dyspnea, irregular heart rhythm, leg edema, palpitations, rapid heart rate or vomiting Respiratory/Chest Respiratory/Chest: Denies chest tightness, cough, dyspnea or breast pain Gastrointestinal Gastrointestinal: Denies abdominal pain, anorexia, constipation, cramping, diarrhea, hemorrhoids, vomiting or weight changes Genitourinary Genitourinary: Denies dysuria, flank pain, genital lesions, genital pain, urinary frequency or urinary urgency Musculoskeletal Musculoskeletal: Denies back pain, difficulty walking, joint pain, limited range of motion, muscle cramps or numbness Integumentary Integumentary: Denies lesions or unusual bruising Neurologic Neurologic: Denies abnormal movements, abnormal speech, dizziness, numbness, seizure-like activity or syncope Psychiatric Psychiatric: Denies anxiety, behavioral changes, change in appetite, change in libido, cognitive impairment, confusion, depression, difficulty concentrating, hallucinations or suicidal thoughts Endocrine Endocrinology: Denies excessive sweating, polydipsia or polyuria Hematologic/Lymphatic Hematologic/Lymphatic: Denies easy bleeding, easy bruising or lymphadenopathy Allergic/Immunologic Allergic/Immunologic: Denies itchy eyes, lip swelling, seasonal rhinorrhea, rhinitis, throat swelling, tongue swelling, eczemia, wheezing or asthma Vital Signs Vital Signs Vital Signs: 05/09/21 07:15 05/09/21 07:16 05/09/21 09:21 Temperature 96.7 F L Temperature Source Temporal Pulse Rate 90 86 Blood Pressure 111/79 BP Systolic 111 BP Diastolic 79 Pulse Ox 98 98 05/09/21 09:27 05/09/21 09:35 05/09/21 09:38 Temperature Temperature Source Pulse Rate 71 86 71 Blood Pressure 113/71 118/76 BP Systolic 113 118 BP Diastolic 71 76 Pulse Ox 99 94 05/09/21 09:42 05/09/21 09:45 05/09/21 09:47 Temperature Temperature Source Pulse Rate 73 77 74 Blood Pressure 111/68 100/63 BP Systolic 111 100 BP Diastolic 68 63 Pulse Ox 97 100 05/09/21 09:50 05/09/21 09:52 05/09/21 09:55 Temperature Temperature Source Pulse Rate 88 95 93 Blood Pressure 107/67 110/67 BP Systolic 107 110 BP Diastolic 67 67 Pulse Ox 99 05/09/21 09:57 05/09/21 10:02 05/09/21 10:05 Temperature Temperature Source Pulse Rate 85 89 68 Blood Pressure 109/60 103/63 BP Systolic 109 103 BP Diastolic 60 63 Pulse Ox 98 99 05/09/21 10:07 05/09/21 10:10 05/09/21 10:12 Temperature Temperature Source Pulse Rate 62 83 66 Blood Pressure 116/74 BP Systolic 116 BP Diastolic 74 Pulse Ox 100 100 05/09/21 10:15 05/09/21 10:17 05/09/21 10:22 Temperature Temperature Source Pulse Rate 68 68 74 Blood Pressure 104/58 L 103/57 L BP Systolic 104 103 BP Diastolic 58 57 Pulse Ox 100 100 05/09/21 10:27 05/09/21 10:32 05/09/21 10:37 Temperature Temperature Source Pulse Rate 80 72 66 Blood Pressure BP Systolic BP Diastolic Pulse Ox 100 100 100 05/09/21 10:41 05/09/21 11:35 05/09/21 12:32 Temperature 97.4 F L Temperature Source Temporal Pulse Rate 70 66 63 Blood Pressure 112/69 105/67 91/53 L BP Systolic 112 105 91 BP Diastolic 69 67 53 Pulse Ox 99 Weight Weight: 174 lb Body Mass Index (BMI) 29.8 Physical Exam Const alert, oriented x3, no apparent distress and healthy appearing General Appearance: cooperative; Negative for anxious HEENT normocephalic Face and Sinus: normal facial exam Eyes EOMs intact bilaterally and no scleral icterus General Eye: normal appearance of both eyes Neck full ROM and supple Lymph Lymphatic: no lymphadenopathy noted Chest Chest: abnormal inspection of the chest Resp normal respiratory effort Effort and Inspection: able to speak in complete sentences Cardio regular rate GI soft to palpation and non-tender Inspection: gravid Palpation: soft; Negative for tender external exam normal Amniotic Fluid: other see HPI Back/Spine no CVA tenderness Extremity normal to inspection, full ROM and no clubbing, cyanosis or edema General Extremity: Negative for calf tenderness or edema Skin Lesions: no lesions Rashes: no rashes Psych mental status grossly normal Labs Labs Labs: Blood Type O POSITIVE Antibody Screen NEGATIVE Hct 35.9 % (37-47) L Hgb 11.7 g/dL (12.0-15.0) L Obstetrics US Syphilis Total Ab Non-reactive Rubella IgG Antibody Reactive (Nonreactive) Hep Bs Antigen Non-Reactive (Nonreactive) Chlamydia DNA (DOMI) Negative (Negative) Neisseria gonorrhoeae DNA (DOMI) Negative (Negative) HIV 1&2 Antibody Non-Reactive (Nonreactive) Glucose 1 Hr 50 gm 115 mg/dL (70-140) Rhogam given: No Assessment & Plan (1) Supervision of high risk , antepartum: COMMENT: PRR BELTRAN 05/07/21 girl PC: Lili Spouse:Asael (2) Short interval between pregnancies affecting , antepartum: COMMENT: Delivered daughter 04/11/20 (3) : QUALIFIERS: Weeks of gestation: 40 weeks Qualified Code(s): Z3A.40 - 40 weeks gestation of COMMENT: Declines genetic and carrier screen, NL anatomy US. GBS neg, NL growth US PLAN: Patient presents IAL, plan expectant management for , pitocin/AROM PRN if needed. Pain management: plans epidural. GBS negative. Management of any complications: none I have reviewed the [facility] and made any clinically relevant updates.
--- NOTE | 2021-05-09 13:08 | EX.PCM.OBRPT ---
Assessment & Plan (1) Supervision of high risk , antepartum: COMMENT: PRR BELTRAN 05/07/21 girl PC: Lili Spouse:Asael (2) Short interval between pregnancies affecting , antepartum: COMMENT: Delivered daughter 04/11/20 (3) : QUALIFIERS: Weeks of gestation: 40 weeks Qualified Code(s): Z3A.40 - 40 weeks gestation of COMMENT: Declines genetic and carrier screen, NL anatomy US. GBS neg, NL growth US Maternal Data Information BELTRAN Calculator Estimated Delivery Date Method Current WG Current Estimate 05/07/21 LMP (Certain) 40w 2d Vaginal Delivery Maternal Presentation Maternal Presentation: Active Labor Type of Induction: Amniotomy Operative Information Date of Procedure: 05/09/21 Pre-Operative Diagnosis: @ 40 weeks 2 days in active labor Post-Operative Diagnosis: @ 40 weeks 2 days in active labor Surgery / Procedure Performed: Spontaneous Vaginal Delivery Type of Anesthesia: Epidural Estimated Blood Loss: 100cc Findings Description of Procedure: Patient began pushing and delivered the head in the IRENA presentation. The head was delivered atraumatically. The anterior and posterior shoulders delivered without complication followed by the rest of the infant and the was placed on the maternal abdomen. Delayed cord clamping was employed for approximately 60 seconds. Cord was clamped and cut and gentle traction was applied to the cord and the placenta delivered spontaneously immediately following it was noted to be intact with three-vessel cord. The perineum and vagina were inspected and noted to have a 1st degree perineal laceration that was repaired with a 3-0 vicryl rapide stitch. EBL was 100 cc. Patient and infant tolerated delivery well. Presentation: Vertex Time of Membrane Rupture: 12:45pm Amniotic Fluid Description: Clear Placental Delivery Description: Spontaneous Placenta Disposition: [facility] Cord Vessel Description: 3 Vessels Cord Entanglement: None A Gender: Female (1 minute): 9 (5 minute): 10 Delayed Cord Clamping: Yes Post Vaginal Delivery Medications Given After Delivery: IV Pitocin Episiotomy Description: None Laceration: 2nd degree Complication Complications: None Multi Select Codes Urinary/Genital Urinary/Genital CPT Codes: 29906 Vaginal Delivery [facility]
--- NOTE | 2021-05-09 13:11 | PCM.DC ---
Discharge Instructions Diet Discharge Diet: No restrictions Activity Discharge Activity: Return to Normal Activity, May Not Drive (while taking narcotic pain medications.) and May Shower May resume sexual activity in: 4-6 weeks Dressing / Incision Call your doctor if your incision/area has: Continuous Slow Oozing, Sudden Increased Bleeding, Increased Pain/ Swelling, Increased Redness and Foul Smelling Discharge Follow Up Care Please Follow Up With: Vinita Cordova, When: Call [phone] to make an appointment with your doctor in 6 weeks. If you had elevated blood pressure or 4th degree laceration, you will need to be seen in 2 weeks. Test Results: Test results from this visit will be discussed in further detail at your follow-up appointment, if applicable. Discharge Plan Admission Admit Date/Time: 05/09/21 08:50 Primary Reason for Your Visit: spontaneous vaginal delivery Attending Provider: Vinita Cordova Primary Care Provider: Kirsty Parker NP Discharge Orders/Prescriptions Prescriptions: Continued prenat.vits,flora,[id number] Tablet 1 tab PO DAILY RF: 0 Referrals / Follow Up: Kirsty Parker NP, [employer] [Primary Care Provider] - Disposition Disposition (needs filled in before D/C Order can be placed): Home, Self Care
[2021-05-09] MEDS: 0.9% Saline Lock 10 ML Syringe IV (16:04)
[2021-05-09] MEDS: Acetaminophen 500 MG Tablet 1000 MG PO (20:51)
[2021-05-10 00:45] VITALS: BP 112/46; PULSE 64; RESP 16; TEMP 36.6; O2SAT 98
[2021-05-10] MEDS: Ibuprofen 600 MG Tablet PO ×2 (00:55→09:45)
[2021-05-10 04:50] VITALS: BP 104/63; PULSE 68; RESP 16; TEMP 36.6; O2SAT 96
[2021-05-10] MEDS: Acetaminophen 500 MG Tablet 1000 MG PO (04:56)
--- NOTE | 2021-05-10 07:48 | PCM.PN.OB ---
Subjective Subjective Patient doing well without complaints. Tolerating PO. Ambulating and voiding without difficulty. Feeding well. Denies chest pain, shortness of breath, calf pain/swelling, fevers, chills, lightheadedness. Objective Data Objective Data Vital Signs: Vital Signs Temp Pulse Resp BP Pulse Ox 98 F 68 16 104/63 96 05/10/21 04:50 05/10/21 04:50 05/10/21 04:50 05/10/21 04:50 05/10/21 04:50 Oxygen Delivery Method Room Air Weight: 174 lb Body Mass Index (BMI) 29.8 Intake & Output: Intake and Output for Last 24 Hours 05/08/21 05/09/21 05/10/21 23:59 23:59 23:59 Intake Total 2163.34 / 2163.34 Output Total 550 / 550 Balance 1613.34 / 1613.34 Lab / Micro Data Result Diagrams: 05/09/21 09:10 Labs: Laboratory Results - last 24 hr 05/09/21 09:10: WBC 8.8, RBC 4.15 L, Hgb 11.7 L, Hct 35.9 L, MCV 86.5, MCH 28.2, MCHC 32.6, RDW Std Deviation 41.5, RDW Coeff of [place] 13.3, Plt Count 170, MPV 12.5 H, Immature Gran % (Auto) 0.500, Neut % (Auto) 71.3 H, Lymph % (Auto) 20.3, [place] % (Auto) 6.8, Eos % (Auto) 0.3, Baso % (Auto) 0.8, Absolute Neuts (auto) 6.3, Absolute Lymphs (auto) 1.79, Nucleated RBC % 0 05/09/21 09:10: Blood Type O POSITIVE, Antibody Screen NEGATIVE Micro: Microbiology 05/09/21 09:15 Nasal Secretion SARS-CoV-2 Antigen (Rapid) - Final ROS Constitutional Constitutional: Denies chills, fatigue, fever(s), poor appetite or weakness Eyes Eyes: Denies blurry vision, change in vision, seeing flashes or spots in vision ENT HEENT: Denies dizziness, headache(s), loss taste/smell or sore throat Cardiovascular Cardiovascular: Denies chest pain, dizziness, dyspnea, irregular heart rhythm, palpitations or rapid heart rate Respiratory/Chest Respiratory/Chest: Denies chest tightness, cough, dyspnea or breast pain Gastrointestinal Gastrointestinal: Denies abdominal pain, constipation or vomiting Genitourinary Genitourinary: Denies dysuria or flank pain Musculoskeletal Musculoskeletal: Denies difficulty walking, joint pain, limited range of motion or numbness Neurologic Neurologic: Denies abnormal movements, abnormal speech, dizziness, numbness, seizure-like activity or syncope Psychiatric Psychiatric: Denies anxiety, behavioral changes, change in appetite, confusion, depression or suicidal thoughts Physical Exam Const alert, oriented x3 and no apparent distress General Appearance: cooperative and comfortable Resp normal respiratory effort Cardio regular rate GI normal to inspection, nondistended, normoactive bowel sounds GI Narrative: uterus is firm below umbilicus Palpation: soft Bimanual Exam - Adnexa, Other: Negative for cul-de-sac fullness Back/Spine no CVA tenderness and thoraco-lumbar ROM normal Extremity normal to inspection, no clubbing, cyanosis or edema, no calf tenderness and no pedal edema Psych mental status grossly normal, thought process normal, cooperative, affect normal, speech normal, activity/motor behavior normal, denies homicidal ideation and denies suicidal ideation Assessment & Plan (1) Vaginal delivery: PLAN: s/p PPD # 1 1. routine post delivery care 2. breast feeding- support given 3. rh positive 4. rubella immune 5. stable for dc to home
[2021-05-10] MEDS: Prenatal Vits Tablet 1 TABLET PO (09:45)
[2021-05-10 09:48] VITALS: BP 91/51; PULSE 76; RESP 16; TEMP 36.6; O2SAT 96
[2021-05-10 13:16] VITALS: BP 95/57; PULSE 62; RESP 16; TEMP 36.6; O2SAT 96
[2021-05-10 15:39] VITALS: RESP 16
== END 2021-05-10 15:39 | disposition home or self-care (01) | DRG 807 ==
LOC: WPOUT 08:57 → WP 08:57
PROVIDERS: Admitting Provider Obstetrics & Gynecology; PCP Nurse Practitioner Family; Referring Provider Obstetrics & Gynecology; Visit Provider Obstetrics & Gynecology
DX: O70.0 First degree perineal laceration during delivery (principal); Z37.0 Single live birth; Z3A.40 40 weeks gestation of pregnancy
CPT/HCPCS: 59025; 59050; 85025; 86850; 86900; 86901; 87426; 99218; J7120; A4216; G0378

== ENCOUNTER → 2023-03-24 | Outpatient (CLI) | payer BC, SELFPAY ==
[2023-03-31 18:08] LABS: HPV Reflexed? NOT INDICATED
== END | disposition home or self-care (01) ==
PROVIDERS: PCP Nurse Practitioner Family; Referring Provider Obstetrics & Gynecology; Visit Provider Obstetrics & Gynecology
DX: Z12.4 Encounter for screening for malignant neoplasm of cervix (principal)
CPT/HCPCS: 88175; G0145

== ENCOUNTER → 2023-03-31 | Outpatient (CLI) | payer BC, SELFPAY ==
--- NOTE | 2023-03-31 15:22 | US_ITS ---
STUDY: ULTRASOUND OF THE FEMALE PELVIS - COMPLETE REASON FOR EXAM: Female, 28 years old. abnormal bleeding with IUD LMP: March 26, 2023 TECHNIQUE: Transabdominal and Transvaginal TECHNICAL QUALITY: Adequate. COMPARISON: April 06, 2020 FINDINGS: The uterus is anteverted and is in a midline position. The uterus measures 9.9 x 5.3 x 2.9 cm. Normal uterine cervix. The endometrium measures 2 mm in thickness, and is normal. There is no demonstrated endometrial mass. There is no demonstrated myometrial mass. I.U.D. - The patient does not have an I.U.D. it appears to be in the lower uterine segment. The right ovary is visualized. The right ovary measures 4.7 x 2.7 x 2.2 cm. There is no right ovarian cyst or ovarian mass. There is no visualized right adnexal mass or complex lesion. There is normal arterial and normal venous vascularity. The left ovary is visualized. The left ovary measures 2.7 x 2.4 x 1.7 cm. There is no left ovarian cyst or ovarian mass. There is no visualized left adnexal mass or complex lesion. There is normal arterial and normal venous vascularity. There is no fluid in the cul-de-sac. Polycystic ovary disease: No. US/Pelvic w/ Transvaginal IMPRESSION: IUD in the lower uterine segment. Electronically Signed: Keron Bernal MD at 17:39 EST ,
--- OUTSIDE RECORDS SUMMARY | 2023-03-31 19:06 | XMS RPT_ITS | CCD ---
Author Name Unknown Address [address] [place] [id number] Organization [facility] Care Team Providers Care Community Development Director Name Role Phone Unavailable Primary Care Provider Unavailabl e Allergies Allergy Classification Reported Allergen(s) Allergy Type Date of Onset Reaction(s) Facility (2 sources) Benzalkonium Drug Allergy 3 [facility] Work Phone: (2 sources) Sulfamethoxazole / Trimethoprim Drug Allergy 3 [facility] Work Phone: Medications Completed/Discontinued Medications Medication Drug Class(es) Dates Sig (Normalized) Sig (Original) ondansetron 4 mg disintegrating oral tablet (2 sources) Serotonin-3 Receptor Antagonist Start: 09-20-2022 take 1 tablet by mouth every eight hours as needed ondansetron orally disintegrating (ZOFRAN ODT) 4 mg disintegrating tablet Take 1 tablet by mouth every 8 hours as needed. 12 tablet 0 09/20/2022 Active Problems Problem Classification Problem Date Documented Da te Episodic/Chronic Abdominal pain (1 source) Flank pain; Translations: [Unspecified abdominal pain] 09-20-2022 Episodic Genitourinary symptoms and ill-defined conditions (1 source) Microscopic hematuria; Translations: [Other microscopic hematuria] 09-20-2022 Episodic Other gastrointestinal disorders (1 source) Diarrhea; Translations: [Diarrhea, unspecified] 09-20-2022 Episodic Results Test Name Value Interpretation Reference Range Facil ity Vital Signs Date Time Vital Sign Value Performing Clinician Jose hensley 09-20-2022 14:51-0400 Body temperature 98.6 [degF] Basia Love PA-C Work Phone: [facility] 09-20-2022 14:51-0400 Body weight 63.5 kg Basia Love PA-C Work Phone: [facility] 09-20-2022 14:51-0400 Diastolic blood pressure 62 mm[Hg] Basia Athy PA-C Work Phone: [facility] 09-20-2022 14:51-0400 Heart rate 72 /min Basia Athy PA-C Work Phone: [facility] 09-20-2022 14:51-0400 Respiratory rate 16 /min Basia Athy PA-C Work Phone: [facility] 09-20-2022 14:51-0400 SaO2% (BldA) [Mass fraction] 98 % Basia Athy PA-C Work Phone: [facility] 09-20-2022 14:51-0400 Systolic blood pressure 102 mm[Hg] Basia Athy PA-C Work Phone: [facility] Encounters Encounter Date Encounter Type Care Provider Facility Start: 09-22-2022 Telephone encounter Delmy Colon APRN.CNP Work Phone: [facility] Plan of Treatment Date Care Activity Detail Author Start: 10-24-2022 Influenza vaccination INFLUENZA (#1) [facility] Start: 02-23-2022 DEPRESSION ASSESSMENT DEPRESSION ASSESSMENT [facility] Start: 2015 PAP TESTING PAP TESTING [facility] Start: 2013 Urine microalbumin profile DTAP,TDAP,TD (1 - Tdap) [facility] Start: 01-24-2012 HEPATITIS C SCREENING HEPATITIS C SCREENING [facility] Start: 01-24-2012 HIV SCREENING HIV SCREENING [facility] Start: 1994 COVID-19 VACCINE (#1) COVID-19 VACCINE (#1) [facility] Start: 1994 HEPATITIS B (1 of 3 - 3-dose series) HEPATITIS B (1 of 3 - 3-dose series) [facility] Bacteria identified in Urine by Culture URINE CULTURE Microbiology Routine Flank pain Ordered: 09/20/2022 [facility] Work Phone: Payers Date Payer Category Payer Unknown [employer] [id number] 2022-Present [phone] [address] [place] [address] PPO [id number] 2022 Unknown [id number] Social History Date Type Detail Facility Tobacco smoking status NHIS Tobacco smoking consumption unknown [facility] Work Phone: Start: 1994 Sex Assigned At Not on file [facility] Gender identity Not on file [facility] inic Note 09-22-2022 Telephone Encounter - Emilia Lopez LPN - 09/22/2022 9:44 AM EDTTelephone Encounter - Ani Mccormick - 09/22/2022 8:31 AM EDT Note Date & Type Note Facility 09-22-2022 Miscellaneous Notes Formattin g of this note might be different from the original. Patient returned call and went over results, notes from express care provider with understanding. Left message for patient to return call. Ani Mccormick No significant growth was shown on urine culture. If patient seems to be getting worse not better patient should follow-up with primary care provider. documented in this encounter [facility] Progress note 09-20-2022 Note Date & Type Note Facility 09-20-2022 Note HNO ID: [id number] Author: Basia Love PA-C Service: ? Author Type: Physician Hvac Project Manager Type: Progress Notes Filed: 09/20/2022 3:23 PM Note Text: This note was created using [employer]. Subjective Noemí Gomez is a 27 year old female. HPI Patient presents with a chief complaint of low back pain, diarrhea, nausea. Denies any urinary frequency, urgency or hematuria. No fever. She states she started with an upset stomach and diarrhea 2 days ago. She then started to feel nauseous last evening. She states her abdominal pain had improved however. She did eat at the [employer] the day before symptoms started. She had had a cheeseburger. No fever. She has had some body aches. No cough, sore throat, runny nose. She tried some Tylenol [id number] which seemed to help. Review of Systems HENT: Negative. Respiratory: Negative. Cardiovascular: Negative. Gastrointestinal: Positive for abdominal pain, diarrhea and nausea. Negative for vomiting. Genitourinary: Positive for flank pain. Negative for dysuria, frequency, hematuria and urgency. Musculoskeletal: Positive for back pain. Skin: Negative. All other systems reviewed and are negative. No past medical history on file. No current outpatient medications on file. No current facility-administered medications for this visit. No past surgical history on file. No family history on file. Objective BP 102/62 Pulse 72 Temp 37 ?C (98.6 ?F) Resp 16 Wt 63.5 kg (140 lb) SpO2 98% Physical Exam Vitals reviewed. Constitutional: Appearance: Normal appearance. HENT: Head: Normocephalic and atraumatic. Cardiovascular: Rate and Rhythm: Normal rate and regular rhythm. Heart sounds: Normal heart sounds. Pulmonary: Effort: Pulmonary effort is normal. Breath sounds: Normal breath sounds. Abdominal: General: Abdomen is flat. Palpations: Abdomen is soft. Tenderness: There is no right CVA tenderness or left CVA tenderness. Comments: Mild RUQ ttp as well as LLQ ttp. No RLQ ttp. No guarding or rebound. Bowel sounds active. Abdominal soft and non distended. Musculoskeletal: Cervical back: Neck supple. Skin: General: Skin is warm and dry. Findings: No rash. Neurological: General: No focal deficit present. Mental Status: She is alert and oriented to person, place, and time. Assessment and Plan ASSESSMENT/PLAN: 1. Flank pain - ICD9: 789.09, ICD10: R10.9 (primary diagnosis) - ua has trace blood, no other uti symptoms. She is having vomiting and diarrhea as well, likely gastroenteritis but discussed possibility of a kidney stone. She is not having significant pain right now. Discussed if she has worsening flank pain, fever, vomiting she needs seen in the ED. - UA DIP, URINE (POC) - URINE CULTURE 2. Diarrhea, unspecified type - ICD9: 787.91, ICD10: R19.7 BRAT diet 3. Microscopic hematuria - ICD9: 599.72, ICD10: R31.29 Follow up with pcp Basia Love PA-C [facility] History of Present illness Narrative 09-20-2022 Basia Love PA-C - 09/20/2022 3:11 PM EDT Note Date & Type Note Facility 09-20-2022 History of Presen t illness Narrative This note was created using [email or web address]. Subjective Noemí Gomez is a 27 year old female. HPI Patient presents with a chief complaint of low back pain, diarrhea, nausea. Denies any urinary frequency, urgency or hematuria. No fever. She states she started with an upset stomach and diarrhea 2 days ago. She then started to feel nauseous last evening. She states her abdominal pain had improved however. She did eat at the [employer] the day before symptoms started. She had had a cheeseburger. No fever. She has had some body aches. No cough, sore throat, runny nose. She tried some Tylenol [id number] which seemed to help. Review of Systems HENT: Negative. Respiratory: Negative. Cardiovascular: Negative. Gastrointestinal: Positive for abdominal pain, diarrhea and nausea. Negative for vomiting. Genitourinary: Positive for flank pain. Negative for dysuria, frequency, hematuria and urgency. Musculoskeletal: Positive for back pain. Skin: Negative. All other systems reviewed and are negative. No past medical history on file. No current outpatient medications on file. No current facility-administered medications for this visit. No past surgical history on file. No family history on file. Objective BP 102/62 Pulse 72 Temp 37 C (98.6 F) Resp 16 Wt 63.5 kg (140 lb) SpO2 98% Physical Exam Vitals reviewed. Constitutional: Appearance: Normal appearance. HENT: Head: Normocephalic and atraumatic. Cardiovascular: Rate and Rhythm: Normal rate and regular rhythm. Heart sounds: Normal heart sounds. Pulmonary: Effort: Pulmonary effort is normal. Breath sounds: Normal breath sounds. Abdominal: General: Abdomen is flat. Palpations: Abdomen is soft. Tenderness: There is no right CVA tenderness or left CVA tenderness. Comments: Mild RUQ ttp as well as LLQ ttp. No RLQ ttp. No guarding or rebound. Bowel sounds active. Abdominal soft and non distended. Musculoskeletal: Cervical back: Neck supple. Skin: General: Skin is warm and dry. Findings: No rash. Neurological: General: No focal deficit present. Mental Status: She is alert and oriented to person, place, and time. Assessment and Plan ASSESSMENT/PLAN: 1. Flank pain - ICD9: 789.09, ICD10: R10.9 (primary diagnosis) - ua has trace blood, no other uti symptoms. She is having vomiting and diarrhea as well, likely gastroenteritis but discussed possibility of a kidney stone. She is not having significant pain right now. Discussed if she has worsening flank pain, fever, vomiting she needs seen in the ED. - UA DIP, URINE (POC) - URINE CULTURE 2. Diarrhea, unspecified type - ICD9: 787.91, ICD10: R19.7 BRAT diet 3. Microscopic hematuria - ICD9: 599.72, ICD10: R31.29 Follow up with pcp Basia Love PA-C documented in this encounter [facility] Evaluation note Note Date & Type Note Facility documented in this encounter [facility] Summary Purpose Family History No Family History Records FoundNo Family History Records Found Advance Directives No Advanced Directives Records FoundNo Advanced Directives Records Found Additional Source Comments INFORMATION SOURCE (unrecogn ized section and content) DATE CREATED AUTHOR AUTHOR'S ORGANIZ ATION 09/22/2022 [facility] Source Comments (unrecognize d section and content) In the event this informatio n is protected by the Federal Confidentiality of Alcohol and Drug Abuse Patient Records regulations: The Federal rules restrict any use of the information to criminally investigate or prosecute any alcohol or drug abuse patient.[facility] the event this information is protected by the Federal Confidentiality of Alcohol and Drug Abuse Patient Records regulations: The Federal rules restrict any use of the information to criminally investigate or prosecute any alcohol or drug abuse patient.[facility] Reason for Visit (unrecogniz ed section and content) Reason Comments Results FOR RECORDS PERTAINING TO PATIENTS WHO ARE OR HAVE BEEN ENROLLED IN A CHEMICAL DEPENDENCY/SUBSTANCEABUSE PROGRAM, SOME INFORMATION MAY BE OMITTED. This clinical summary was aggregated from multiple sources. Caution should be exercised in using it in the provision of clinical care. This summary normalizes information from multiple sources, and as a consequence, information in this document may materially change the coding, format and clinical context of patient data. In addition, data may be omitted in some cases. CLINICAL DECISIONS SHOULD BE BASED ON THE PRIMARY CLINICAL RECORDS. [facility] [employer] [facility] provides no warranty or guarantee of the accuracy or completeness of information in this document.
== END | disposition home or self-care (01) ==
LOC: US 15:19
PROVIDERS: PCP Nurse Practitioner Family; Referring Provider Obstetrics & Gynecology; Visit Provider Obstetrics & Gynecology
DX: N93.9 Abnormal uterine and vaginal bleeding, unspecified (principal)
CPT/HCPCS: 76830; 76856

== ENCOUNTER → 2023-09-25 | Outpatient (CLI) | payer BC, SELFPAY ==
[2023-09-25 10:38] LABS: Absolute Lymphocyte Count 1.69 X10^3/uL (0.83-4.51); Absolute Neutrophil Count 4.2 X10^3/uL (2.0-7.7); Basophil# 0.08 X10^3/uL; Basophil% 1.2 % (0-1); Eosinophil# 0.08 X10^3/uL; Eosinophils% 1.2 % (0-5); Hematocrit 38.4 % (37-47); Hemoglobin 12.3 g/dL (12.0-15.0); Lymphocyte # 1.69 X10^3/ul (0.83-4.51); Lymphocyte % 25.3 % (19-41); Mean Corpuscular Hgb 29.7 pg (27.0-32.0); Mean Corpuscular Volume 92.8 fL (81-99); Mean Platelet Vol. 12.8 fl (6.2-12.0); Monocyte# 0.66 X10^3/uL; Monocyte% 9.9 % (0-10); NRBC Flagged by Analyzer 0 % (0-5); Neutrophil # 4.15 X10^3/uL (2.7-7.7); Platelet Count 145 K/mm3 (150-450); RBC Distribution Width CV 12.7 % (11.6-14.6); RBC Distribution Width SD 43.5 fl (35.1-43.9); Red Blood Count 4.14 M/mm3 (4.2-5.4); White Blood Count 6.7 K/mm3 (4.4-11.0)
[2023-09-25 10:53] LABS: AST(SGOT) 14 U/L (15-37); Alanine Aminotransfer ALT/SGPT 16 U/L (13-56); Albumin, Serum 3.5 g/dL (3.2-5.0); Alkaline Phosphatase 80 U/L (45-117); Anion Gap 3 (5-15); BUN 13 mg/dL (7-18); BUN/Creat Ratio 18.1 RATIO (10-20); CRP < 2.90 mg/L (0.0-3.0); Calcium,Total 8.6 mg/dL (8.5-10.1); Chloride 112 mmol/L (98-107); Creatinine, Serum 0.72 mg/dL (0.55-1.02); EST Glomerular Filtration Rate 102 mL/min (>60); Est Glom Filt Rate - Afr Amer 123 mL/min (>60); Globulin 3.6 g/dL (2.2-4.2); Glucose 93 mg/dL (74-106); Potassium 3.9 mmol/L (3.5-5.1); Protein, Total 7.1 g/dL (6.4-8.2); Sodium Level 140 mmol/L (136-145)
[2023-09-25 11:02] LABS: Erythrocyte Sedimentation Rate 2 mm/hr (0-30)
[2023-09-29 14:10] LABS: ACCA 35 units (0-90); ALCA 4 units (0-60); AMCA 16 units (0-100); Albumin 3.9 g/dL (2.9-4.4); Alpha-1-Globulins 0.2 g/dL (0.0-0.4); Alpha-2-Globulins 0.6 g/dL (0.4-1.0); Cytoplasmic Ab (C-ANCA) <1:20 titer (Neg:<1:20); Endomysial Antibody IgA Negative (Negative); Gamma Globulin 0.9 g/dL (0.4-1.8); Immunoglobulin A 258 mg/dL (87-352); Immunoglobulin G 1010 mg/dL (586-1602); Immunoglobulin M 85 mg/dL (26-217); PROEL- TOTAL PROTEIN 6.7 g/dL (6.0-8.5); Perinuclear Ab (P-ANCA) <1:20 titer (Neg:<1:20); gASCA 2 units (0-50); t-Transglutaminase IgA <2 U/mL (0-3)
[2023-10-01 13:08] LABS: Anti-Centromere B Ab <0.2 AI (0.0-0.9); Anti-Chromatin <0.2 AI (0.0-0.9); Anti-Jo <0.2 AI (0.0-0.9); Anti-Scleroderma-70 AB <0.2 AI (0.0-0.9); Anti-dsDNA Ab 1 IU/mL (0-9); Beef <0.10 kU/L (Class 0); Chocolate <0.10 kU/L (Class 0); Codfish <0.10 kU/L (Class 0); Corn <0.10 kU/L (Class 0); Egg, Whole <0.10 kU/L (Class 0); Milk (Cow) <0.10 kU/L (Class 0); Mussels <0.10 kU/L (Class 0); Peanut <0.10 kU/L (Class 0); Pork <0.10 kU/L (Class 0); RNP Ab 0.2 AI (0.0-0.9); SJOGREN'S Anti-SS-A test < 0.2 AI (0.0-0.9); SJOGREN'S Anti-SS-B test < 0.2 AI (0.0-0.9); Salmon <0.10 kU/L (Class 0); Shrimp <0.10 kU/L (Class 0); Smith Ab <0.2 AI (0.0-0.9); Soybean <0.10 kU/L (Class 0); Tuna <0.10 kU/L (Class 0); Wheat <0.10 kU/L (Class 0)
== END | disposition home or self-care (01) ==
PROVIDERS: PCP Nurse Practitioner Family; Referring Provider Student in an Organized Health Care Education/Training Program; Visit Provider Student in an Organized Health Care Education/Training Program
DX: R19.7 Diarrhea, unspecified (principal)
CPT/HCPCS: 36415; 80053; 82784; 83516; 84165; 85025; 85652; 86003; 86005; 86036; 86140; 86225; 86235; 86255; 86256; 86334; 86671

== ENCOUNTER → 2024-04-01 | Outpatient (CLI) | payer SELFPAY ==
--- NOTE | 2024-04-01 09:44 | BI_ITS ---
PROCEDURE: DIAG MAMM W/CAD, BILAT REASON FOR EXAM: F, Age 29 y/o , Palpable right breast mass. TECHNIQUE: Bilateral screening digital breast tomosynthesis with 2D and 3D images. Computer aided detection. COMPARISON: Baseline examination. FINDINGS: The breasts are extremely dense which lowers the sensitivity of mammography. No suspicious masses, areas of developing architectural distortion, or suspicious calcifications. With the patient's history of a palpable lump in the right breast, targeted sonographic correlation recommended. BI/DIAG MAMM W/CAD, BILAT IMPRESSION: BI-RADS 0: INCOMPLETE - NEED ADDITIONAL IMAGING EVALUATION. Follow-up code: Sonographic follow-up. The patient will be notified of the results by letter. Reading Location: [place] [id number]
--- NOTE | 2024-04-01 09:44 | US_ITS ---
PROCEDURE: BREAST LIMITED UNILATERAL REASON FOR EXAM: Lateral breast pain. COMPARISON: Prior exam(s) dating back to prior mammogram done earlier in the day.. TECHNIQUE: Targeted ultrasound of the right breast was performed. FINDINGS: ULTRASOUND: Breast ultrasound was targeted to the lateral half of the right breast. The breast tissue appears sonographically normal. No cyst, solid mass, or suspicious shadowing. Dilated retroareolar ducts. US/Breast Limited Unilateral IMPRESSION: Dilated retroareolar ducts. BI-RADS 2: BENIGN RECOMMEND ANNUAL MAMMOGRAPHIC SCREENING. (LEFT BREAST) Reading Location: [place] [address]
== END | disposition home or self-care (01) ==
LOC: OPBI 09:32
PROVIDERS: PCP Nurse Practitioner Family; Referring Provider Nurse Practitioner Women's Health; Visit Provider Nurse Practitioner Women's Health
DX: N63.10 Unspecified lump in the right breast, unspecified quadrant (principal)
CPT/HCPCS: 76642; 77062; 77066; G0279